=== PATIENT | male | born 1975 | race Caucasian/White ===

== ENCOUNTER 2020-03-11 23:41 | Emergency (ER) | payer OTHER ==
--- NOTE | 2020-03-12 00:05 | ED ---
Chest Pain HPI - General Chief Complaint: Chest Pain Stated Complaint: Chest Pain, SOB Time Seen by Provider: 03/11/20 23:55 Source: patient, RN notes reviewed, old records reviewed Mode of arrival: wheelchair Limitations: no limitations - History of Present Illness Initial Comments: This is a 45-year-old male DF for evaluation patient presents today for evaluation regards to chest pain. Left-sided chest pain up her left chest and some shortness of breath. Patient states he has history of high blood pressure nonsmoker no diabetes no other significant medical history seen by primary care over teleconference earlier this week so he may have bronchitis finish a Z-Martinez symptoms remain. Patient still with some chest pain does admit to some anxiety concern of possible having this Versus as well as the chest pain concern for his heart. No fevers MD Complaint: chest pain -: days(s) Onset: during rest, during exertion Pain Location: left chest Pain Radiation: none Severity: mild Severity scale (1-10): 3 Quality: tightness Consistency: intermittent Improves With: nothing Worsens With: nothing Context: recent illness Anginal Symptoms: dyspnea Other Symptoms: cough Treatments Prior to Arrival: none - Related Data Home Medications Medication Instructions Recorded Confirmed Lisinopril-Hctz 10-12.5 mg 1 tab PO DAILY 07/19/16 07/19/16 [Zestoretic 10-12.5] Allergies Allergy/AdvReac Type Severity Reaction Status Date / Time No Known Allergies Allergy Verified 03/11/20 23:51 Review of Systems ROS Statement: Those systems with pertinent positive or pertinent negative responses have been documented in the HPI. ROS Other: All systems not noted in ROS Statement are negative. EKG Findings - EKG Comments: EKG Findings:: EKG shows sinus rhythm of 82, CO 172, QRS 106, QTC 429 Past Medical History Past Medical History: Hypertension Additional Past Medical History / Comment(s): colitis History of Any Multi-Drug Resistant Organisms: None Reported Past Surgical History: No Surgical Hx Reported Past Psychological History: No Psychological Hx Reported Smoking Status: Never smoker Past Alcohol Use History: None Reported Past Drug Use History: None Reported General Exam Limitations: no limitations General appearance: alert, in no apparent distress Head exam: Present: atraumatic, normocephalic, normal inspection Eye exam: Present: normal appearance, PERRL, EOMI. Absent: scleral icterus, conjunctival injection, periorbital swelling ENT exam: Present: normal exam, mucous membranes moist Neck exam: Present: normal inspection. Absent: tenderness, meningismus, lymphadenopathy Respiratory exam: Present: normal lung sounds bilaterally. Absent: respiratory distress, wheezes, rales, rhonchi, stridor Cardiovascular Exam: Present: regular rate, normal rhythm, normal heart sounds. Absent: systolic murmur, diastolic murmur, rubs, gallop, clicks GI/Abdominal exam: Present: soft, normal bowel sounds. Absent: distended, tenderness, guarding, rebound, rigid Extremities exam: Present: normal inspection, full ROM, normal capillary refill. Absent: tenderness, pedal edema, joint swelling, calf tenderness Back exam: Present: normal inspection Neurological exam: Present: alert, oriented X3, CN II-XII intact Psychiatric exam: Present: normal affect, normal mood Skin exam: Present: warm, dry, intact, normal color. Absent: rash Course Vital Signs 03/11/20 23:49 Temperature 97.9 F Pulse Rate 74 Respiratory 16 Rate Blood Pressure 167/98 O2 Sat by Pulse 100 Oximetry - Reevaluation(s) Reevaluation #1: 03/12/20 00:49 Medical records reviewed Reevaluation #2: 03/12/20 01:12 Patient informed of results, questions are answered Reevaluation #3: 03/12/20 01:12 No significant current active chest pain Chest Pain MDM - MDM 45 male who does have history of high blood pressure coming chest pain today. Patient's concerned that he has coronavirus. She has normal x-ray labwork in the ER troponin EKG and negative. Patient being low risk for heart disease will be discharged home to continue outpatient follow-up with primary care who did have contact with us Disposition Clinical Impression: Atypical chest pain, Chest pain Disposition: HOME SELF-CARE Condition: Good Instructions (If sedation given, give patient instructions): Chest Pain (ED) Is patient prescribed a controlled substance at d/c from ED?: No Referrals: Deysi Iyer MD [Primary Care Provider] - 1-2 days
[2020-03-12 00:25] LABS: Basophils # (A) 0.1 k/uL (0-0.2); Basophils % (A) 1 %; Eosinophils # (A) 0.3 k/uL (0-0.7); Eosinophils % (A) 4 %; HCT 45.5 % (39.0-53.0); HGB 15.2 gm/dL (13.0-17.5); Lymphocytes # (A) 1.5 k/uL (1.0-4.8); Lymphocytes % (A) 24 %; MCH 29.1 pg (25.0-35.0); MCHC 33.4 g/dL (31.0-37.0); MCV 87.2 fL (80.0-100.0); Monocytes # (A) 0.4 k/uL (0-1.0); Monocytes % (A) 7 %; Neutrophils # (A) 3.7 k/uL (1.3-7.7); Neutrophils % (A) 60 %; Platelet Count 218 k/uL (150-450); RBC 5.21 m/uL (4.30-5.90); RDW 12.8 % (11.5-15.5); WBC 6.2 k/uL (3.8-10.6)
--- NOTE | 2020-03-12 00:28 | XR ---
EXAMINATION TYPE: XR chest 2V DATE OF EXAM: 03/12/2020 COMPARISON: NONE HISTORY: Chest pain TECHNIQUE: 2 views FINDINGS: Heart and mediastinum are normal. Lungs are clear. Diaphragm is normal. Bony thorax is inta ct. There are surgical clips at the base of the neck. There are chest leads. IMPRESSION: No active cardiopulmonary disease. Normal heart.
[2020-03-12 00:34] LABS: ALT 23 U/L (4-49); AST 25 U/L (17-59); African American GFR (CKD) >90 (>60 ml/min/1.73 sqM); Albumin 4.5 g/dL (3.5-5.0); Alkaline Phosphatase 85 U/L (38-126); Anion Gap 10 mmol/L; Blood Urea Nitrogen 19 mg/dL (9-20); Calcium 9.7 mg/dL (8.4-10.2); Carbon Dioxide 26 mmol/L (22-30); Chloride 99 mmol/L (98-107); Glucose 106 mg/dL (74-99); Magnesium 2.1 mg/dL (1.6-2.3); Non-African American GFR(CKD) 87 (>60 ml/min/1.73 sqM); Potassium 3.8 mmol/L (3.5-5.1); Sodium 135 mmol/L (137-145); Total Bilirubin 0.4 mg/dL (0.2-1.3); Total Protein 7.2 g/dL (6.3-8.2)
[2020-03-12 00:41] LABS: D-Dimer <0.17 mg/L FEU (<0.60); Partial Thromboplastin Time 23.6 sec (22.0-30.0); Prothrombin Time 10.6 sec (9.0-12.0)
[2020-03-12 01:38] VITALS: BP 130/95; PULSE 67; RESP 18; TEMP 98.2
== END 2020-03-12 01:38 | disposition home or self-care (01) ==
LOC: EC 23:41
DX: R07.89 Other chest pain (principal); R06.02 Shortness of breath; R05 Cough; I10 Essential (primary) hypertension; Z79.899 Other long term (current) drug therapy
CPT/HCPCS: 36415; 71046; 80053; 83690; 83735; 83880; 84484; 85025; 85379; 85610; 85730; 93005; 99284